=== PATIENT | female | born 1980 | race Hispanic/Latino ===

== ENCOUNTER 2016-07-21 09:01 | Emergency (ER) | payer OTHER ==
[2016-07-21 09:43] LABS: Basophils % (Auto) 1.5 % (0.0-1.8); Eosinophils % (Auto) 1.8 % (0.0-4.3); Hematocrit 43.7 % (30.3-42.9); Hemoglobin 14.4 gm/dl (10.1-14.3); Mean Corpuscular HGB Conc 33 % (30-34); Mean Corpuscular Hemoglobin 30 pg (28-32); Mean Corpuscular Volume 92 fl (79-97); Platelet Count 325 K/mm3 (140-440); Red Blood Count 4.75 M/mm3 (3.65-5.03); Red Cell Distribution Width 15.1 % (13.2-15.2); White Blood Count 9.3 K/mm3 (4.5-11.0)
[2016-07-21 09:58] LABS: Anion Gap 20 mmol/L; BUN/Creatinine Ratio 18.75; Blood Urea Nitrogen 15 mg/dL (7-17); Calcium 9.1 mg/dL (8.4-10.2); Carbon Dioxide 24 mmol/L (22-30); Chloride 103.4 mmol/L (98-107); Glucose 85 mg/dL (65-100); Potassium 4.2 mmol/L (3.6-5.0); Sodium 143 mmol/L (137-145)
[2016-07-21 10:07] LABS: Urine Drugs of Abuse Note Disclamer
[2016-07-21 10:32] LABS: Bilirubin,Urine NEG (Negative); Blood,Urine LG (Negative); Ketones,Urine NEG (Negative); Leukocyte Esterase,Urine NEG (Negative); Mucus,Urine FEW /HPF; Nitrite,Urine NEG (Negative); Protein,Urine <15 mg/dL mg/dL (Negative); Urobilinogen,Urine < 2.0 mg/dL (<2.0)
[2016-07-21] MEDS ORDERED: ATIVAN PO ONE (10:54)
--- NOTE | 2016-07-21 11:26 | Emergency Department Report ---
ED Psych HPI - General Chief Complaint: Psych Stated Complaint: SUICIDAL/MEDS REFILL/VAGINAL BLEEDING Time Seen by Provider: 07/21/16 10:54 Source: patient Mode of arrival: Ambulatory - History of Present Illness MD Complaint: suicidal ideation, feels depressed -: Gradual Associated Psychiatric Symptoms: depression, suicidal ideation History of same: Yes Quality: constant Improves With: none Worsens With: none Context: recent drug abuse, not taking psychiatric Associated Symptoms: denies other symptoms If Self Harm: admits thoughts of - Related Data Allergies Allergy/AdvReac Type Severity Reaction Status Date / Time NSAIDS (Non-Steroidal AdvReac upset Verified 07/21/16 09:20 Anti-Inflamma stomach ED Review of Systems ROS: Stated complaint: SUICIDAL/MEDS REFILL/VAGINAL BLEEDING Other details as noted in HPI Comment: All other systems reviewed and negative ED Past Medical Hx - Past Medical History Hx Hypertension: Yes Hx Seizures: Yes (s/p panic attacks) Hx Psychiatric Treatment: Yes (panic attacks ; bipolar ; ptsd ; generalized anxiety disorder) Additional medical history: ulcers. endometriosis. fx T5 / T6. anemia - Surgical History Additional Surgical History: laparoscopy x 2 - Social History Smoking Status: Current Every Day Smoker Substance Use Type: None ED Physical Exam - General Limitations: No Limitations General appearance: alert, in no apparent distress - Head Head exam: Present: atraumatic, normocephalic - Eye Eye exam: Present: normal appearance - ENT ENT exam: Present: mucous membranes moist - Neck Neck exam: Present: normal inspection - Respiratory Respiratory exam: Present: normal lung sounds bilaterally. Absent: respiratory distress - Cardiovascular Cardiovascular Exam: Present: regular rate, normal rhythm. Absent: systolic murmur, diastolic murmur, rubs, gallop - GI/Abdominal GI/Abdominal exam: Present: soft, normal bowel sounds - Extremities Exam Extremities exam: Present: normal inspection - Back Exam Back exam: Present: normal inspection - Neurological Exam Neurological exam: Present: alert, oriented X3 - Psychiatric Psychiatric exam: Present: depressed, flat affect, suicidal ideation - Skin Skin exam: Present: warm, dry, intact, normal color. Absent: rash ED Course Vital Signs 07/21/16 09:10 Temperature 98.0 F Pulse Rate 98 H Respiratory 17 Rate Blood Pressure 141/95 O2 Sat by Pulse 100 Oximetry ED Medical Decision Making - Lab Data Result diagrams: 07/21/16 09:26 07/21/16 09:26 Critical care attestation.: If time is entered above; I have spent that time in minutes in the direct care of this critically ill patient, excluding procedure time. ED Disposition Condition: Stable Referrals: PRIMARY CARE, [Primary Care Provider] - 3-5 Days
--- NOTE | 2016-07-21 16:36 | Consultation ---
History of Present Illness - Reason for Consult Consult date: 07/21/16 Reason for consult: Mental Health Evaluation Requesting physician: NAN PARKER - Chief Complaint Chief complaint: "I am suicidal" - History of Present Psychiatric Illness 36 y.o. white female presenting to [facility] for SI's. Today patient is uncooperative and stated, "Yes I want to kill myself." She stated, "That's all I am going to say now. Per the RN notes, patient has been appropriate. Medications and Allergies Allergies Allergy/AdvReac Type Severity Reaction Status Date / Time NSAIDS (Non-Steroidal AdvReac upset Verified 07/21/16 09:20 Anti-Inflamma stomach Past psychiatric history - Past Medical History Past Medical History: hypertension, seizures, other Past Surgical History: Other (unable to obtain) - past Psychiatric treatment and history psychiatric treatment history: Patient refused to talk. - Social History Social history: other (Unable to obtain) Mental Status Exam - Vital signs Last Vital Signs Temp 98.0 F 07/21/16 09:10 Pulse 98 H 07/21/16 09:10 Resp 18 07/21/16 14:47 BP 141/95 07/21/16 09:10 Pulse Ox 100 07/21/16 09:10 - Exam Narrative exam: Unable to complete the MSE Results Result Diagrams: 07/21/16 09:26 07/21/16 09:26 Abnormal lab results 07/21/16 Range/Units 09:26 Hgb 14.4 H (10.1-14.3) gm/dl Hct 43.7 H (30.3-42.9) % [place] % (Auto) 10.3 H (0.0-7.3) % [place] # 1.0 H (0.0-0.8) K/mm3 All other labs normal. Assessment and Plan Assessment and plan: Impression: Possibly substance induced Mood DO. Today patient is uncooperative and stated, "Yes I want to kill myself." She stated, "That's all I am going to say now. She does acknowledge SI's. Positive for benzos and cocaine. Patient has a hx of seizures, per ER notes. Historical Diagnosis: Per Collateral infor, patient has a hx of Bipolar, PTSD, and panic attacks. Recommendation/Plan: Continue 1013 with possible inpatient psy services. Gather more information from patient along collateral. Start Ativan 1 mg PO Q6hrs for S /S of withdrawals.
[2016-07-21] MEDS ORDERED: ATIVAN IV ONE (19:35)
[2016-07-21] MEDS ORDERED: HALDOL IM ONE (19:35)
--- NOTE | 2016-07-22 11:32 | Progress Note ---
Subjective - Reason for Consult Consult date: 07/22/16 Reason for consult: depression, SI - Chief Complaint Chief complaint: "I am suicidal" Mental Status Exam - Vital signs Last Vital Signs Temp 98.6 F 07/21/16 22:00 Pulse 90 07/21/16 22:00 Resp 16 07/21/16 22:00 BP 131/75 07/21/16 22:00 Pulse Ox 98 07/21/16 22:00 Assessment and Plan On examination, patient is very dysphoric and tearful. She was sedated upon approach and had a very difficult time waking to answer questions. When she did , patient was fairly irritable and tearful. She remained hopeless in her presentation and noted that she has no place to go on all her family has abandoned her. Patient is currently homeless as well as unemployed and with no financial support. Patient was unable to reliably answer questions regarding her past treatment; however, she did note that she was previously on mood stabilizers and verified diagnosis of bipolar disorder. Patient was requesting benzodiazepines for her anxiety disorder. General Appearance: casually dressed, no acute distress Sensorium/Consciousness: alert and responding to external stimuli; clear Orientation: person, place, time and situation Eye Contact: limited Attitude / Behavior: guarded Psychomotor & Musculoskeletal Activity: WNL Mood: ok Affect: constricted, limited range Speech / Language: fluent, with normal rate/rhythm/tone Thought Processes: Perseverative Thought Content: rumination about self and her abuse affects her, passive SI, no HI Perception: no AVH Insight: limited Judgement: limitied Capacity for ADLs: independent Plan: Start lithium 300 every 12 hours Start BuSpar 10mg 3 times a day Start Vistaril 25 mg 3 times a day Continue Ativan in case patient is having withdrawal symptoms, with a plan of discontinuing in the next 24-48 hours
[2016-07-22] MEDS: ATIVAN PO PRN ×2 (13:54→20:45)
[2016-07-22] MEDS: LITHOBID ER PO SCH (13:54)
[2016-07-22] MEDS: BUSPAR PO SCH ×2 (17:05→22:00)
[2016-07-22] MEDS: VISTARIL PO SCH ×2 (17:05→22:00)
[2016-07-22] MEDS ORDERED: BUSPAR ONE (22:28)
[2016-07-22] MEDS ORDERED: ESKALITH ONE (22:29)
[2016-07-23] MEDS: LITHOBID ER PO SCH (00:30)
[2016-07-23 01:45] VITALS: BP 146/89
== END 2016-07-23 03:16 ==
LOC: EEVIPCON 09:01 → ED 09:01
DX: R45.851 Suicidal ideations (principal); F32.9 Major depressive disorder, single episode, unspecified; I10 Essential (primary) hypertension; F31.9 Bipolar disorder, unspecified; F41.9 Anxiety disorder, unspecified; D64.9 Anemia, unspecified; F17.200 Nicotine dependence, unspecified, uncomplicated; Z88.8 Allergy status to other drugs, medicaments and biological substances
CPT/HCPCS: 36415; 80048; 80178; 80307; 81001; 84703; 85025; 96372; 96374; 99285; G0480; J1630; J2060; 80320; Q0177

== ENCOUNTER 2016-10-31 10:41 | Emergency (ER) | payer SELFPAY ==
[2016-10-31 11:05] VITALS: BP 117/76
[2016-10-31 11:24] LABS: Hematocrit 34.3 % (30.3-42.9); Hemoglobin 11.1 gm/dl (10.1-14.3); Mean Corpuscular HGB Conc 32 % (30-34); Mean Corpuscular Hemoglobin 29 pg (28-32); Mean Corpuscular Volume 89 fl (79-97); Platelet Count 300 K/mm3 (140-440); Red Blood Count 3.85 M/mm3 (3.65-5.03); Red Cell Distribution Width 14.7 % (13.2-15.2); White Blood Count 9.9 K/mm3 (4.5-11.0)
[2016-10-31 11:34] LABS: Bilirubin,Urine NEG (Negative); Blood,Urine NEG (Negative); Ketones,Urine NEG (Negative); Leukocyte Esterase,Urine NEG (Negative); Nitrite,Urine NEG (Negative); Protein,Urine <15 mg/dL mg/dL (Negative); Urobilinogen,Urine < 2.0 mg/dL (<2.0); WBC,Urine < 1.0 /HPF (0.0-6.0)
[2016-10-31 11:40] LABS: Alanine Aminotransferase 11 units/L (7-56); Albumin 3.1 g/dL (3.9-5); Alkaline Phosphatase 56 units/L (35-129); Anion Gap 16 mmol/L; Blood Urea Nitrogen 12 mg/dL (7-17); Calcium 8.6 mg/dL (8.4-10.2); Carbon Dioxide 21 mmol/L (22-30); Chloride 104.2 mmol/L (98-107); Glucose 89 mg/dL (65-100); Sodium 137 mmol/L (137-145); Total Protein 6.2 g/dL (6.3-8.2)
--- NOTE | 2016-10-31 12:29 | Emergency Department Report ---
ED HPI - General Chief complaint: Abdominal Pain Stated complaint: ABD PAIN Time Seen by Provider: 10/31/16 12:10 Source: patient, EMS Mode of arrival: Stretcher Limitations: No Limitations - History of Present Illness Initial comments: 36-year-old female here with complaint of spotting. Patient is , approximately 6 weeks according to her. She's not had any ultrasound at this point. Denies fevers chills nausea vomiting. MD Complaint: vaginal bleeding -: Sudden Location: pelvis Radiation: none Consistency: constant Improves with: none Worsens with: none Vaginal bleeding: light - Related Data Previous Rx's Medication Instructions Recorded Last Taken Type Ondansetron [Zofran Odt] 4 mg PO Q8HR #14 tab.rapdis 10/31/16 Unknown Rx Allergies Allergy/AdvReac Type Severity Reaction Status Date / Time NSAIDS (Non-Steroidal AdvReac upset Verified 07/21/16 09:20 Anti-Inflamma stomach ED Review of Systems ROS: Stated complaint: ABD PAIN Other details as noted in HPI Comment: All other systems reviewed and negative Constitutional: denies: chills, fever Eyes: denies: eye pain ENT: denies: ear pain, throat pain Respiratory: denies: cough, shortness of breath, wheezing Cardiovascular: denies: chest pain, palpitations Endocrine: no symptoms reported Gastrointestinal: denies: abdominal pain, nausea, diarrhea Genitourinary: other (trace vaginal bleeding). denies: urgency, dysuria, discharge Musculoskeletal: denies: back pain, joint swelling, arthralgia Skin: denies: rash, lesions Neurological: denies: headache, weakness, paresthesias Psychiatric: denies: anxiety, depression Hematological/Lymphatic: denies: easy bleeding, easy bruising ED Past Medical Hx - Past Medical History Hx Hypertension: Yes Hx Seizures: Yes (s/p panic attacks) Hx Psychiatric Treatment: Yes (panic attacks ; bipolar ; ptsd ; generalized anxiety disorder) Additional medical history: ulcers. endometriosis. fx T5 / T6. anemia - Surgical History Additional Surgical History: laparoscopy x 2 - Family History Family history: no significant - Social History Smoking Status: Current Every Day Smoker Substance Use Type: None - Medications Home Medications: Home Medications Medication Instructions Recorded Confirmed Last Taken Type Ondansetron [Zofran Odt] 4 mg PO Q8HR #14 tab.rapdis 10/31/16 Unknown Rx ED Physical Exam - General Limitations: No Limitations General appearance: alert, in no apparent distress - Head Head exam: Present: atraumatic, normocephalic - Eye Eye exam: Present: normal appearance - ENT ENT exam: Present: mucous membranes moist - Neck Neck exam: Present: normal inspection - Respiratory Respiratory exam: Present: normal lung sounds bilaterally. Absent: respiratory distress, wheezes, rales - Cardiovascular Cardiovascular Exam: Present: regular rate, normal rhythm. Absent: systolic murmur, diastolic murmur, rubs, gallop - GI/Abdominal GI/Abdominal exam: Present: soft, normal bowel sounds - Extremities Exam Extremities exam: Present: normal inspection - Back Exam Back exam: Present: normal inspection - Neurological Exam Neurological exam: Present: alert, oriented X3 - Psychiatric Psychiatric exam: Present: normal affect, normal mood - Skin Skin exam: Present: warm, dry, intact, normal color. Absent: rash ED Course Vital Signs 10/31/16 10/31/16 10/31/16 10:48 10:52 11:00 Temperature 98.4 F Respiratory 18 Rate Blood Pressure 104/60 104/60 117/76 O2 Sat by Pulse 104 H 97 Oximetry ED Medical Decision Making - Lab Data Result diagrams: 10/31/16 11:04 10/31/16 11:04 Laboratory Results - last 24 hr 10/31/16 10/31/16 10/31/16 11:04 11:04 11:04 WBC 9.9 RBC 3.85 Hgb 11.1 Hct 34.3 MCV 89 MCH 29 MCHC 32 RDW 14.7 Plt Count 300 Sodium 137 Potassium 4.0 Chloride 104.2 Carbon Dioxide 21 L Anion Gap 16 BUN 12 Creatinine 0.4 L Estimated GFR > 60 BUN/Creatinine Ratio 30.00 Glucose 89 Calcium 8.6 Total Bilirubin 0.20 AST 9 ALT 11 Alkaline Phosphatase 56 Total Protein 6.2 L Albumin 3.1 L Albumin/Globulin Ratio 1.0 HCG, Qual HCG, Quant 43128 H Urine Color Urine Turbidity Urine pH Ur Specific [place] Urine Protein Urine Glucose (UA) Urine Ketones Urine Blood Urine Nitrite Urine Bilirubin Urine Urobilinogen Ur Leukocyte Esterase Urine WBC (Auto) Urine RBC (Auto) U Epithel Cells (Auto) 10/31/16 10/31/16 11:04 11:14 WBC RBC Hgb Hct MCV MCH MCHC RDW Plt Count Sodium Potassium Chloride Carbon Dioxide Anion Gap BUN Creatinine Estimated GFR BUN/Creatinine Ratio Glucose Calcium Total Bilirubin AST ALT Alkaline Phosphatase Total Protein Albumin Albumin/Globulin Ratio HCG, Qual Positive HCG, Quant Urine Color Yellow Urine Turbidity Clear Urine pH 7.0 Ur Specific [place] 1.011 Urine Protein <15 mg/dl Urine Glucose (UA) Neg Urine Ketones Neg Urine Blood Neg Urine Nitrite Neg Urine Bilirubin Neg Urine Urobilinogen < 2.0 Ur Leukocyte Esterase Neg Urine WBC (Auto) < 1.0 Urine RBC (Auto) 2.0 U Epithel Cells (Auto) 2.0 - Medical Decision Making First trimester bleeding. Patient has ultrasound that shows Rest of labs are unremarkable. Exam is unremarkable. At this point will have her follow-up with her OB as an outpatient. Ultrasound shows IUP at 6 weeks 3 days. Plan to discharge the patient to follow up with OB. Portions of this chart were dictated with dictation software. There may be dictation errors contained within this note. Critical care attestation.: If time is entered above; I have spent that time in minutes in the direct care of this critically ill patient, excluding procedure time. ED Disposition Clinical Impression: First trimester bleeding Disposition: DC-01 TO HOME OR SELFCARE Is pt being admited?: No Condition: Stable Instructions: Abdominal Pain (ED) Additional Instructions: Please follow up with an OB as soon as possible. Please start taking vitamins. Prescriptions: Ondansetron [Zofran Odt] 4 mg PO Q8HR #14 tab.rapdis Referrals: PRIMARY CARE, [Primary Care Provider] - 3-5 Days
[2016-10-31] MEDS ORDERED: TYLENOL PO ONE (13:00)
[2016-10-31] MEDS ORDERED: ZOFRAN IV ONE (13:00)
--- NOTE | 2016-10-31 13:03 | Ultrasound Report ---
ULTRASOUND OB LESS THAN 14 WEEKS FETUS ULTRASOUND OB TRANSVAGINAL HISTORY: Vaginal bleeding during , abdominal pain. TECHNIQUE: Transabdominal and transvaginal ultrasound with color and spectral doppler interrogation. The uterus measures 7 x 4 x 6 cm. No uterine mass. Normal cervix. An intrauterine gestational sac containing a pole and yolk sac is identified. Heart rate measures 124 beats per minute. [place]-rump length correlates with a 6 week, 3 day . The ovaries are normal size, contour and echotexture. No adnexal cyst or mass. No pelvic fluid collection. IMPRESSION: Viable intrauterine as described. No acute abnormality is detected.
--- NOTE | 2016-10-31 13:03 | Ultrasound Report ---
ULTRASOUND OB LESS THAN 14 WEEKS FETUS ULTRASOUND OB TRANSVAGINAL HISTORY: Vaginal bleeding during , abdominal pain. TECHNIQUE: Transabdominal and transvaginal ultrasound with color and spectral doppler interrogation. The uterus measures 7 x 4 x 6 cm. No uterine mass. Normal cervix. An intrauterine gestational sac containing a pole and yolk sac is identified. Heart rate measures 124 beats per minute. [place]-rump length correlates with a 6 week, 3 day . The ovaries are normal size, contour and echotexture. No adnexal cyst or mass. No pelvic fluid collection. IMPRESSION: Viable intrauterine as described. No acute abnormality is detected.
[2016-10-31] MEDS ORDERED: PHENERGAN ONE (15:00)
== END 2016-10-31 21:13 | disposition home or self-care (01) ==
LOC: ED 10:41
DX: O46.91 Antepartum hemorrhage, unspecified, first trimester (principal); I10 Essential (primary) hypertension; F17.210 Nicotine dependence, cigarettes, uncomplicated; Z3A.01 Less than 8 weeks gestation of pregnancy; Z88.8 Allergy status to other drugs, medicaments and biological substances
CPT/HCPCS: 36415; 76801; 76817; 80053; 81001; 84702; 84703; 85027; 96374; 99284; J2405; Q0169